=== PATIENT | male | born 1980 | race African-American/Black ===

== ENCOUNTER 2025-07-03 10:43 | Emergency (ER) | payer MEDICAID, OTHER ==
[~2025-07-03] VITALS: Ht 180.3 cm; Wt 86.2 kg
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
[2025-07-03 11:34] VITALS: BP 147/89; PULSE 101; RESP 18; TEMP 98.7; O2SAT 99
[2025-07-03] MEDS ORDERED: CEPH500C PO (11:34)
[2025-07-03] MEDS ORDERED: IBUP-1456 PO (11:34)
--- NOTE | 2025-07-03 11:39 | DVH ---
INDICATION: INJURY X 5 DAYS AGO TECHNIQUE: 4 radiographic views of the right hand were obtained. COMPARISON: None FINDINGS/IMPRESSION: No acute fracture or dislocations. 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 No significant degenerative changes. No acute soft tissue abnormalities. No radiographic foreign body.
[2025-07-06 06:07] LABS: Chlamydia Trachomatis, NAA Negative (Negative); Neisseria gonorrhoeae, NAA Negative (Negative)
== END 2025-07-03 11:38 | disposition home or self-care (01) ==
LOC: ER 10:48
DX: S63.652A Sprain of metacarpophalangeal joint of right middle finger, initial encounter (principal); S61.230A Puncture wound without foreign body of right index finger without damage to nail, initial encounter; Z11.3 Encounter for screening for infections with a predominantly sexual mode of transmission; Z79.1 Long term (current) use of non-steroidal anti-inflammatories (NSAID); X58.XXXA Exposure to other specified factors, initial encounter; Y93.89 Activity, other specified; Y92.89 Other specified places as the place of occurrence of the external cause; Y99.8 Other external cause status
CPT/HCPCS: 29130; 73130